=== PATIENT | male | born 1950 | race African-American/Black ===

== ENCOUNTER 2018-09-30 11:34 | Outpatient (CLI) | payer MEDICARE, MEDICAID ==
--- NOTE | 2018-09-30 13:02 | ULT ---
THYROID ULTRASOUND: DATE: 09/30/2018. COMPARISON: None available. HISTORY: Evaluate thyroid nodule. TECHNIQUE: Multiplanar lerner scale sonographic imaging of the thyroid gland obtained. FINDINGS: The thyroid isthmus measures 4 mm in AP dimension, right lobe measures 2.1 x 5.2 x 2.6 cm, and left l obe measures 1.9 x 4.4 x 2.9 cm. There are numerous bilateral thyroid nodules seen. There is a complex heterogeneously hypoechoic holly id and partially cystic nodule within the mid and inferior aspect of the right lobe measuring 2.7 x 1 .6 x 2.5 cm. On the left, there are 3 clustered tiny cysts measuring 3-6 mm. Within the mid portion of the left lobe, there is a complex solid and cystic nodule measuring 2.2 x 1 .1 x 1.4 cm. In the mid portion of the left lobe, there is an 8 x 5 x 7 mm nodule. IMPRESSION: Bilateral thyroid nodules as detailed above. There is a TIRADS 4 category lesion bilaterally. Given size of these lesions, fine needle aspiration is advised bilaterally. If comparison imaging is available, it would be helpful. POS: [facility]
== END 2018-09-30 11:35 | disposition home or self-care (01) ==
LOC: SCSULT 11:34
PROVIDERS: ATTEND Family Medicine
DX: E04.2 Nontoxic multinodular goiter (principal); E07.9 Disorder of thyroid, unspecified
CPT/HCPCS: 76536

== ENCOUNTER 2018-11-29 12:52 | Day surgery (SDC) | payer MEDICARE, MEDICAID ==
[2018-11-29] MEDS ORDERED: Lidocaine 1% PF 5 ML VIAL ONE (13:38)
[2018-11-29] MEDS ORDERED: Sodium Bicarbonate 2.5 MEQ/5 ML VIAL ONE (13:38)
[2018-11-29 15:07] VITALS: BP 188/86; TEMP 98
[2018-11-29 15:17] VITALS: BMI 19.6
--- NOTE | 2018-11-29 15:42 | ULT ---
ULTRASOUND THYROID AND NEEDLE BIPOSY X2: HISTORY: Thyroid nodules. COMPARISON: Thyroid ultrasound from 09/30/2018. TECHNIQUE/FINDINGS: The patient was brought to the ultrasound suite. All questions were answered. The patient's neck was prepped and draped in a normal sterile fashion. Both bilateral thyroid nodule s were visualized. After adequate anesthesia with local Lidocaine anesthetic, a total of three 25-gauge fine needle aspi rates were obtained of both dominant right and left thyroid nodules. The patient tolerated the proce dure well without complications. IMPRESSION: Technically successful ultrasound-guided thyroid nodule biopsy x2. POS: [facility]
== END 2018-11-29 14:20 ==
LOC: ULT 12:52
PROVIDERS: ATTEND Radiology Diagnostic Radiology
PROC: 0GBG3ZX Excision of Left Thyroid Gland Lobe, Percutaneous Approach, Diagnostic (ICD-10-PCS; principal; 2018-11-29)
PROC: 0GBH3ZX Excision of Right Thyroid Gland Lobe, Percutaneous Approach, Diagnostic (ICD-10-PCS; 2018-11-29)
DX: E04.1 Nontoxic single thyroid nodule (principal); I69.954 Hemiplegia and hemiparesis following unspecified cerebrovascular disease affecting left non-dominant side; I10 Essential (primary) hypertension; E11.9 Type 2 diabetes mellitus without complications; I73.9 Peripheral vascular disease, unspecified; I48.0 Paroxysmal atrial fibrillation; E78.5 Hyperlipidemia, unspecified; D50.0 Iron deficiency anemia secondary to blood loss (chronic); Z89.511 Acquired absence of right leg below knee; Z87.891 Personal history of nicotine dependence; Z98.890 Other specified postprocedural states
CPT/HCPCS: 60100; 76942; 88173; J2001